=== PATIENT | female | born 1985 | race Caucasian/White ===

== ENCOUNTER 2025-06-10 19:28 | Emergency (ER) | payer BC, SELFPAY ==
[2025-06-10 19:30] VITALS: BP 114/85
[2025-06-10 19:51] LABS: Urine Character Clear (Clear)
[2025-06-10 19:51] LABS: Hematocrit 38.5 % (37.0-47.0); Hemoglobin 13.3 g/dL (12.0-16.0); Mean Corp Hgb Conc. 34.5 g/dL (33.0-37.0); Mean Corpuscular Volume 88.9 fL (81.0-99.0); Nucleated Red Blood Cells % 0 %; Platelet Count 308 10^3/uL (130-400); Red Cell Dist. Width 12.9 % (11.5-14.5)
[2025-06-10 20:25] LABS: ALT (SGPT) 15 U/L (0-35); AST (SGOT) 21 U/L (14-36); Albumin 4.4 g/dl (3.5-5.0); Alkaline Phosphatase 56 U/L (38-126); Blood Urea Nitrogen 10 mg/dl (7-17); Calcium 9.9 mg/dl (8.4-10.2); Carbon Dioxide 27 mmol/L (22-30); Chloride 104 mmol/L (98-107); Glucose 105 mg/dl (70-99); Lipase 123 U/L (23-300); Potassium 4.1 mmol/L (3.5-5.1); Sodium 136 mmol/L (135-145); Total Protein 7.0 g/dl (6.3-8.2); eGFR > 60.00
[2025-06-10 21:03] VITALS: BMI 24.7
--- NOTE | 2025-06-10 21:04 | ED.GENMED ---
History of Present Illness
<Yony Weber, DO - Last Filed: 06/10/25 23:10>
General
Chief Complaint: Abdominal Pain
Time Seen by Provider: 06/10/25 20:36
<Dimitrios Salas MD, Resident - Last Filed: 06/10/25 23:06>
General
Source: patient
Exam Limitations: none
Nursing documentation reviewed up to this point in time: agreed with
History of Present Illness
History of Present Illness:
This is a 39-year-old female with a history of ovarian cyst rupture, currently not on any medication presenting in the emergency department with sudden onset of right lower abdominal pain. She reports the pain as sharp/stabbing pain. 04/08.
Intermittent. No obvious aggravating or relieving factors. Denies fevers or chills, denies any chest pain, denies any GI symptoms, denies any urinary complaints. Denies any history of kidney stones.
Denies any recent sickness, denies any recent travel.
Past History
<Yony Weber, DO - Last Filed: 06/10/25 23:10>
Past History
ED Past Medical History: Other (pilonidal)
Social History
Tobacco: Non-smoker
Alcohol: None
Drug: None
<Dimitrios Salas MD, Resident - Last Filed: 06/10/25 23:06>
Past History
ED Past Medical History: Other (Back pain)
ED Past Surgical History: Orthopedic
Social History
Personal:
Living: with family
Family History
Family History: Other (Noncontributory)
Review of Systems
<Dimitrios Salas MD, Resident - Last Filed: 06/10/25 23:06>
Review of Systems
Allergies reviewed?: Yes
Constitutional: Denies fever or chills
EENT: Denies sore throat
Respiratory: Denies cough
Cardiac: Denies chest pain
ABD/GI: Reports abdominal pain and nausea; Denies vomiting or diarrhea
: Denies dysuria or frequency
Musculoskeletal: Denies joint pain
Skin: Denies itching
Neurological: Denies dizzy
Endocrine: Denies polyuria
Hematologic/Lymphatic: Denies bleeding
Phy Exam
<Dimitrios Salas MD, Resident - Last Filed: 06/10/25 23:06>
General Physical Exam
General Presentation: well appearing and mild distress
General age: appears stated age
General Skin: warm
General Habitus: normal
General Mental: alert
General Hydration: appears well hydrated
Cardiovascular Exam
Cardiovascular Exam: regular rate/rhythm and no murmur
Pulmonary Exam
Pulmonary Exam: lungs clear, no respiratory distress and no crackles
Gastrointestinal Exam
Gastrointestinal Exam: soft, non distended, guarding, rebound and tender (Right lower quadrant, hypogastric area)
Neurological Exam
Neurological Exam: alert, oriented x3, no motor deficits and no sensory deficits
Course
<Yony Weber, DO - Last Filed: 06/10/25 23:10>
Orders/Labs/Results
Orders:
Orders
06/10/25 19:38
CBC/With Diff [Complete Blood Count/With Diff] Urgent
CMP [Comprehensive Metabolic Panel] Urgent
HCG, Serum Qualitative Screen Urgent
Comment: ADD ON
Lipase Urgent
Comment: ADD ON
06/10/25 19:44
Urinalysis Reflex To Culture Urgent
Date Specimen was Collected: 06/10/25
Time Specimen was Collected: 19:33
06/10/25 20:07
Add On- LAB Urgent
Tests Added?: lipase
06/10/25 20:[address] Non Medication Order As Directed
Physician Order: Please add height and weight.
Above order entered?: Yes
US Pelvis W Transvag Combined Urgent
Reason For Exam: RLQ and pelvic pain
06/10/25 21:09
Iohexol [Omnipaque] See Protocol PO NOW STA
06/10/25 21:30
Ketorolac [Toradol] 15 mg .ROUTE .STK-MED ONE
06/10/25 21:32
Ketorolac [Toradol] 15 mg IV NOW STA
06/10/25 21:45
Add On- LAB Urgent
Tests Added?: B-hcg
Abnormal Lab Results
06/10/25
19:38
MPV 10.9 H fL
(7.4-10.4)
Glucose 105 H mg/dl
(70-99)
06/10/25 19:38
06/10/25 19:38
Vital Signs
Initial and Last Documented VS:
Initial Vital Signs
Temp Pulse Resp BP Pulse Ox
97.8 F 93 15 114/85 100
06/10/25 19:30 06/10/25 19:30 06/10/25 19:30 06/10/25 19:30 06/10/25 19:30
Last Documented Vital Signs
Temp Pulse Resp BP Pulse Ox
97.8 F 93 15 114/85 100
06/10/25 19:30 06/10/25 19:30 06/10/25 19:30 06/10/25 19:30 06/10/25 21:05
<Dimitrios Salas MD, Resident - Last Filed: 06/10/25 23:06>
Orders/Labs/Results
Orders:
Orders
06/10/25 19:38
CBC/With Diff [Complete Blood Count/With Diff] Urgent
CMP [Comprehensive Metabolic Panel] Urgent
HCG, Serum Qualitative Screen Urgent
Comment: ADD ON
Lipase Urgent
Comment: ADD ON
06/10/25 19:44
Urinalysis Reflex To Culture Urgent
Date Specimen was Collected: 06/10/25
Time Specimen was Collected: 19:33
06/10/25 20:07
Add On- LAB Urgent
Tests Added?: lipase
06/10/25 20:[address] Non Medication Order As Directed
Physician Order: Please add height and weight.
Above order entered?: Yes
US Pelvis W Transvag Combined Urgent
Reason For Exam: RLQ and pelvic pain
06/10/25 21:09
Iohexol [Omnipaque] See Protocol PO NOW STA
06/10/25 21:30
Ketorolac [Toradol] 15 mg .ROUTE .STK-MED ONE
06/10/25 21:32
Ketorolac [Toradol] 15 mg IV NOW STA
06/10/25 21:45
Add On- LAB Urgent
Tests Added?: B-hcg
Abnormal Lab Results
06/10/25
19:38
MPV 10.9 H fL
(7.4-10.4)
Glucose 105 H mg/dl
(70-99)
06/10/25 19:38
06/10/25 19:38
Vital Signs
Initial and Last Documented VS:
Initial Vital Signs
Temp Pulse Resp BP Pulse Ox
97.8 F 93 15 114/85 100
06/10/25 19:30 06/10/25 19:30 06/10/25 19:30 06/10/25 19:30 06/10/25 19:30
Last Documented Vital Signs
Temp Pulse Resp BP Pulse Ox
97.8 F 93 15 114/85 100
06/10/25 19:30 06/10/25 19:30 06/10/25 19:30 06/10/25 19:30 06/10/25 21:05
<Dimitrios Salas MD, Resident - Last Filed: 06/10/25 23:06>
MDM/Problems Addressed
Differential Diagnosis Includes:
Ruptured ovarian cyst vs appendicitis vs renal colic vs
MDM/Problems Addressed:
Check CBC, CMP, UA
Update: CBC CMP and urinalysis unremarkable
Will get ultrasound pelvis
Beta-hCG negative. Lipase within normal limits
IV Toradol for pain
Will start preparing for CT if ultrasound is not conclusive and CT is required.
Ultrasound showed normal uterus. No sonographic evidence of torsion. Right ovarian involuting cyst. Trace free fluid
Will hold off on CT.
Shared decision with patient for discharge home and recommended to follow-up with outpatient specialty finishing utility person. Return precautions reviewed. Patient voices understanding and agree with plan.
<Yony Weber, DO - Last Filed: 06/10/25 23:10>
*Pulse Oximetry
SaO2: 100
Oxygen Mode of Delivery: Room air
<Dimitrios Salas MD, Resident - Last Filed: 06/10/25 23:06>
*Pulse Oximetry
Patient hypoxic: no
*Critical Care Note
Total Time (30-74mins, 75-104mins- exclusive of procedures): Not Applicable
ED Attending Note
<Yony Weber, DO - Last Filed: 06/10/25 23:10>
ED Attending Note
Patient seen and examined by attending physician: Yes
I performed a history and physical exam of patient and discussed management with resident, I reviewed resident's note and agree with documented findings and plan of care.: Yes
ED Attending Note:
I have reviewed and agree with history and treatment plan by Dimitrios Salas MD, was negative. My exam revealed
Physical Exam
General: no apparent distress, not acutely ill
Neck: supple. no meningeal signs. normal posterior pharynx
Heart: s1/s2 regular rate and rhythm, no murmur. equal radial
pulses.
HEENT: Pupils equal round reactive to light, EOMI
Lungs: no acute respiratory distress. clear bilaterally
, Pelvic tenderness
Abdomen: normal bowel sounds. not tender. no CVAT
Neuro: alert and oriented. no focal neurological deficits cranial nerves II through XII intact
Skin: no rash
Psychiatric: well kept. interactive and cooperative
Extremities: no edema. no calf tenderness. negative homans. good distal pulses
Ultrasound revealing involuting right ovarian cyst. Doubt appendicitis. Patient improved after IV Toradol. Follow-up with [facility] [employer] AUDITOR.
-
Portions of this chart may have been created with voice recognition software.� Occasional wrong word or��sound alike� substitutions may have occurred due to the inherent limitations of voice recognition software.
Discharge Plan
Departure
Patient Disposition: Home (Routine Discharge)
Date of Disposition: 06/10/25
Time of Disposition: 23:01
Patient with high blood pressure during this ER visit?: No
Condition: Good
Discharge Problem:
Ovarian cyst
Instructions: Ovarian Cyst (DC)
Prescriptions:
No Action
doxycycline hyclate 100 mg tablet
100 mg PO BID Qty: 14 0RF
Referrals:
Rosio Rizvi NP [Family Provider, Family Practice] - Follow up in 1 week
Dorie Tinoco DO [Active, Gynecology] - Follow up in 1 week
Activity Restrictions/Additional Instructions:
You were seen in the [facility] emergency department concerns of abdominal pain. While you were here blood work was performed. CBC CMP and urinalysis unremarkable. Beta-hCG negative. Lipase within normal limits you received IV Toradol
for pain
Ultrasound showed normal uterus. No sonographic evidence of torsion. Right ovarian involuting cyst. Trace free fluid.
Recommend outpatient follow-up with specialty finishing utility person. Information attached with paperwork. Please return to the emergency department if you develop any fevers or chills, any new or worrisome symptoms. You may use ibuprofen for pain.
Interventions
Interventions:
*Risk Screen - Suicide Last Done: 06/10/25 19:30
*General Assessment Last Done: 06/10/25 19:30
*Neglect/Abuse Screening Last Done: 06/10/25 19:30
*ED- Fall Risk Assessment Last Done: 06/10/25 22:50
NA-Mqamxh-Aohjnjwbjy Assessment Last Done: 06/10/25 22:50
Discharge Date and Time
Print Language: HEBREW
[2025-06-10] MEDS: TORADOL 15 MG IV (21:41)
[2025-06-10] MEDS: OMNIPAQUE 50 ML PO (21:42)
[2025-06-10 22:21] LABS: HCG, Serum Qualitative Screen Negative
== END 2025-06-10 23:31 | disposition home or self-care (01) ==
LOC: EMR 19:28
PROVIDERS: Student in an Organized Health Care Education/Training Program; EMERGENCY PHYSICIAN Emergency Medicine; FAMILY PHYSICIAN Nurse Practitioner Family
DX: N83.201 Unspecified ovarian cyst, right side (principal)
CPT/HCPCS: 96374; 99284; 76830; 76856; 80053; 81003; 83690; 84703; 85025